=== PATIENT | male | born 2000 | race Caucasian/White ===

== ENCOUNTER → 2023-07-24 06:24 | Day surgery (SDC) | payer BC, SELFPAY | LOC: GI 06:24 | PROVIDERS: ATTENDING PHYSICIAN Internal Medicine Gastroenterology | DX: K62.5 Hemorrhage of anus and rectum (principal); K64.8 Other hemorrhoids | CPT/HCPCS: 45378 ==

== ENCOUNTER → 2024-01-03 12:15 | Outpatient (REF) | payer BC, SELFPAY ==
[2024-01-03 13:38] LABS: IgA 243 mg/dl (70-400)
== END ==
LOC: REG 12:15
PROVIDERS: ATTENDING PHYSICIAN Internal Medicine Gastroenterology
DX: K52.9 Noninfective gastroenteritis and colitis, unspecified (principal)
CPT/HCPCS: 82784; 83516; 86231

== ENCOUNTER → 2024-07-01 09:41 | Outpatient (REF) | payer BC, SELFPAY ==
[2024-07-01 11:03] LABS: % Basophils 0.8 % (0-2); % Immature Granulocytes 0.4 % (0-0.5); % Neutrophils 45.8 % (42.2-75.2); Absolute Basophils 0.1 10^3/uL (0-0.2); Absolute Eosinophils 0.2 10^3/uL (0-0.7); Absolute Lymphocytes 3.3 10^3/uL (1.2-3.4); Absolute Monocytes 0.6 10^3/uL (0.1-0.6); Absolute Neutrophils 3.6 10^3/uL (1.4-6.5); Hematocrit 45.8 % (39.0-52.0); Hemoglobin 16.5 g/dL (13.0-18.0); Mean Corpuscular Hgb 31.5 pg (27.0-31.0); Mean Corpuscular Volume 87.4 fL (80.0-94.0); Mean Platelet Volume 9.8 fL (7.4-10.4); Nucleated Red Blood Cells % 0 % (-); Platelet Count 260 10^3/uL (130-400); Red Blood Cell Count 5.24 10^6/uL (4.70-6.10); Red Cell Dist. Width 12.2 % (11.5-14.5); White Blood Cell Count 7.9 10^3/uL (4.8-10.8)
[2024-07-01 11:10] LABS: ALT (SGPT) 38 U/L (0-50); AST (SGOT) 26 U/L (17-59); Alkaline Phosphatase 67 U/L (38-126); Blood Urea Nitrogen 15 mg/dl (9-20); Calcium 9.9 mg/dl (8.4-10.2); Carbon Dioxide 27 mmol/L (22-30); Chloride 99 mmol/L (98-107); Glucose 90 mg/dl (70-99); HDL Cholesterol 40 mg/dl; LDL Cholesterol, Calculated 113 mg/dl; Potassium 4.1 mmol/L (3.5-5.1); Sodium 139 mmol/L (135-145); Total Bilirubin 0.8 mg/dl (0.2-1.3); Total Cholesterol 211 mg/dl (50-199); Total Protein 7.8 g/dl (6.3-8.2); Triglyceride 292 mg/dl (10-149); Very Low Density Lipoprotein 58 mg/dl (0-30); eGFR > 60.00
[2024-07-01 11:27] LABS: Free T3 6.04 pg/ml (2.77-5.27); Free T4 1.45 ng/dl (0.78-2.19)
[2024-07-01 11:41] LABS: TSH 1.95 uIU/ml (0.47-4.68)
[2024-07-03 16:26] LABS: Lyme Antibody Screen, EIA Negative (Negative)
== END ==
LOC: REG 09:41
PROVIDERS: ATTENDING PHYSICIAN Physician Assistant Medical
DX: E78.5 Hyperlipidemia, unspecified (principal); E03.9 Hypothyroidism, unspecified; D64.9 Anemia, unspecified; R74.01 Elevation of levels of liver transaminase levels
CPT/HCPCS: 80053; 80061; 84439; 84443; 84481; 85025; 86618

== ENCOUNTER → 2024-08-30 07:54 | Outpatient (REF) | payer BC, SELFPAY | LOC: MRI 07:54 | PROVIDERS: ATTENDING PHYSICIAN Physician Assistant Medical | DX: G44.52 New daily persistent headache (NDPH) (principal) | CPT/HCPCS: 70553; A9575 ==